=== PATIENT | male | born 1970 | race Caucasian/White ===

== ENCOUNTER 2024-11-07 12:01 | Emergency (ER) | payer MEDICARE, MEDICAID, SELFPAY ==
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
[2024-11-07 12:12] VITALS: BP 151/73; PULSE 140; RESP 16; TEMP 37.2; O2SAT 95
[2024-11-07 12:48] VITALS: PULSE 131
[2024-11-07 12:58] VITALS: BP 119/82; PULSE 113; RESP 16; O2SAT 98
--- NOTE | 2024-11-07 13:15 | PC.NURSE ---
Patient awake and alert. Drank 1 L of ice water without any nausea or vomiting
== END 2024-11-07 13:41 ==
PROVIDERS: Emergency Provider Emergency Medicine
DX: Z02.89 Encounter for other administrative examinations (principal); S00.81XA Abrasion of other part of head, initial encounter; S40.812A Abrasion of left upper arm, initial encounter; S40.811A Abrasion of right upper arm, initial encounter; T75.4XXA Electrocution, initial encounter; R00.0 Tachycardia, unspecified; F10.929 Alcohol use, unspecified with intoxication, unspecified; F17.210 Nicotine dependence, cigarettes, uncomplicated; Z65.3 Problems related to other legal circumstances; Y35.833A Legal intervention involving a conducted energy device, suspect injured, initial encounter; Y35.813A Legal intervention involving manhandling, suspect injured, initial encounter; Y92.59 Other trade areas as the place of occurrence of the external cause
CPT/HCPCS: 99281